=== PATIENT | female | born 1965 | race Caucasian/White ===

== ENCOUNTER 2020-08-31 19:00 | Emergency (ER) | payer MEDICAID, OTHER, SELFPAY ==
[~2020-08-31] VITALS: Ht 162.6 cm; Wt 69.0 kg
[2020-08-31] MEDS ORDERED: KETOROLAC 30 MG/1 ML IM ONE (20:00)
[2020-08-31] MEDS ORDERED: KETOROLAC 30 MG/1 ML ONE (20:09)
[2020-08-31 21:23] VITALS: BP 134/45
== END 2020-08-31 21:25 | disposition home or self-care (01) ==
LOC: ED 20:32
DX: R07.89 Other chest pain (principal); Z85.3 Personal history of malignant neoplasm of breast; Z90.13 Acquired absence of bilateral breasts and nipples
CPT/HCPCS: 71250; 93005; 96372; 99284; J1885